=== PATIENT | male | born 1950 | race American Indian/Alaskan Native ===

== ENCOUNTER 2017-09-07 21:08 | Emergency (ER) | payer MEDICARE ==
[2017-09-07 22:14] LABS: Basophils # (Auto) 0.1 K/mm3 (0.0-0.1); Basophils % (Auto) 1.3 % (0.0-1.8); Eosinophils # (Auto) 0.1 K/mm3 (0.0-0.4); Eosinophils % (Auto) 1.6 % (0.0-4.3); Hemoglobin 14.3 gm/dl (11.8-15.2); Lymphocytes # (Auto) 2.5 K/mm3 (1.2-5.4); Lymphocytes % (Auto) 46.2 % (13.4-35.0); Mean Corpuscular HGB Conc 34 % (32-34); Mean Corpuscular Hemoglobin 31 pg (28-32); Mean Corpuscular Volume 91 fl (84-94); Monocytes # (Auto) 0.4 K/mm3 (0.0-0.8); Monocytes % (Auto) 7.8 % (0.0-7.3); Platelet Count 200 K/mm3 (140-440); Red Cell Distribution Width 14.1 % (13.2-15.2)
[2017-09-07 22:21] LABS: BUN/Creatinine Ratio 9; Blood Urea Nitrogen 7 mg/dL (9-20); Calcium 9.5 mg/dL (8.4-10.2); Hemolysis Index 7
[2017-09-08 00:34] LABS: Bilirubin,Urine NEG (Negative); Blood,Urine SM (Negative); Color,Urine Yellow (Yellow); Protein,Urine <15 mg/dL mg/dL (Negative)
[2017-09-08 00:43] LABS: Amphetamine Screen,Urine PRESUMPTIVE NEGATIVE; Benzodiazepines Screen,Urine PRESUMPTIVE NEGATIVE; Cannabinoid Screen,Urine PRESUMPTIVE NEGATIVE; Cocaine Screen,Urine PRESUMPTIVE NEGATIVE; Methadone Screen,Urine PRESUMPTIVE NEGATIVE; Opiate Screen,Urine PRESUMPTIVE NEGATIVE
--- NOTE | 2017-09-08 01:46 | Emergency Department Report ---
ED Psych HPI - General Chief Complaint: Psych Stated Complaint: SUICIDAL Time Seen by Provider: 09/07/17 23:39 Source: patient Mode of arrival: Ambulatory - History of Present Illness Initial Comments: Patient says that he sat worsening depression over the past 2 days has been having thoughts about when he kill himself. He says that he'll probably overdose, but does not have a concrete plan. Remote history of suicide attempt. Lives alone. No guns at home. Denies illicit drug use. Says that he has been compliant with his home medication. - Related Data Allergies Allergy/AdvReac Type Severity Reaction Status Date / Time No Known Allergies Allergy Unverified 09/07/17 21:33 ED Review of Systems ROS: Stated complaint: SUICIDAL Other details as noted in HPI Comment: All other systems reviewed and negative Psychiatric: depression, suicidal thoughts ED Past Medical Hx - Past Medical History Previous Medical History?: No - Surgical History Past Surgical History?: No - Social History Smoking Status: Current Every Day Smoker Substance Use Type: None ED Physical Exam - General Limitations: No Limitations General appearance: alert, in no apparent distress - Head Head exam: Present: atraumatic, normocephalic - Eye Eye exam: Present: normal appearance - ENT ENT exam: Present: mucous membranes moist - Neck Neck exam: Present: normal inspection - Respiratory Respiratory exam: Present: normal lung sounds bilaterally. Absent: respiratory distress - Cardiovascular Cardiovascular Exam: Present: regular rate, normal rhythm. Absent: systolic murmur, diastolic murmur, rubs, gallop - GI/Abdominal GI/Abdominal exam: Present: soft, normal bowel sounds. Absent: tenderness - Rectal Rectal exam: Present: deferred - Extremities Exam Extremities exam: Present: normal inspection - Back Exam Back exam: Present: normal inspection - Neurological Exam Neurological exam: Present: alert, oriented X3 - Psychiatric Psychiatric exam: Present: normal affect, depressed, suicidal ideation - Skin Skin exam: Present: warm, dry, intact, normal color. Absent: rash ED Course Vital Signs 09/07/17 09/08/17 21:33 01:17 Temperature 98.5 F 98.2 F Pulse Rate 99 H 89 Respiratory 18 18 Rate Blood Pressure 121/85 Blood Pressure 124/81 [Left] O2 Sat by Pulse 96 98 Oximetry ED Medical Decision Making - Lab Data Result diagrams: 09/07/17 21:52 09/07/17 21:52 - Medical Decision Making 67-year-old male with past medical history of depression that presents to the ER with suicidal ideation. Vital signs are stable. Patient appears to be depressed. Lab work and urinalysis are unremarkable. Patient is medically clear. He has been evaluated by psychiatry, who recommended inpatient management for the patient. He will remain in the ER until placement can be found. Patient has been placed on a 1013. - Differential Diagnosis depression, intoxication, electrolyte abnormalities, malingering, mood diso Critical care attestation.: If time is entered above; I have spent that time in minutes in the direct care of this critically ill patient, excluding procedure time. ED Disposition Clinical Impression: Mood disorder Disposition: Z-01 MED SCREENING EXAM-CONT Is pt being admited?: No Does the pt Need Aspirin: No Condition: Stable Referrals: PRIMARY CARE, [Primary Care Provider] - 3-5 Days
--- NOTE | 2017-09-08 12:26 | Consultation ---
History of Present Illness - Reason for Consult Consult date: 09/08/17 Reason for consult: Initial Psychiatric Evaluation Medications and Allergies Allergies Allergy/AdvReac Type Severity Reaction Status Date / Time No Known Allergies Allergy Verified 09/08/17 02:00 Home Medications Medication Instructions Recorded Confirmed Last Taken Type Hydrochlorothiazide [HCTZ] 25 mg PO QDAY 09/06/17 09/06/17 Unknown History Mental Status Exam - Vital signs Last Vital Signs Temp 98.2 F 09/08/17 01:17 Pulse 89 09/08/17 01:17 Resp 18 09/08/17 01:17 BP 124/81 09/08/17 01:17 Pulse Ox 98 09/08/17 01:17 Results Result Diagrams: 09/07/17 21:52 09/07/17 21:52 Abnormal lab results 09/07/17 09/07/17 09/07/17 Range/Units 21:52 21:52 21:52 Lymph % (Auto) (13.4-35.0) % [place] % (Auto) (0.0-7.3) % BUN 7 L (9-20) mg/dL Salicylates < 0.3 L (2.8-20.0) mg/dL Acetaminophen < 5.0 L (10.0-30.0) ug/mL 09/07/17 Range/Units 21:52 Lymph % (Auto) 46.2 H (13.4-35.0) % [place] % (Auto) 7.8 H (0.0-7.3) % BUN (9-20) mg/dL Salicylates (2.8-20.0) mg/dL Acetaminophen (10.0-30.0) ug/mL All other labs normal.
[2017-09-08 18:48] VITALS: BP 131/99
== END 2017-09-08 18:50 | disposition home or self-care (01) ==
LOC: EEVIPCON 21:08 → ED 21:08
DX: F39 Unspecified mood [affective] disorder (principal); F17.200 Nicotine dependence, unspecified, uncomplicated
CPT/HCPCS: 36415; 80048; 80307; 81001; 85025; 99285; G0480; 80320

== ENCOUNTER 2017-11-12 16:09 | Emergency (ER) | payer MEDICARE ==
[2017-11-12 16:55] LABS: Basophils # (Auto) 0.1 K/mm3 (0.0-0.1); Eosinophils # (Auto) 0.3 K/mm3 (0.0-0.4); Eosinophils % (Auto) 4.1 % (0.0-4.3); Hematocrit 45.8 % (35.5-45.6); Hemoglobin 15.6 gm/dl (11.8-15.2); Lymphocytes # (Auto) 2.6 K/mm3 (1.2-5.4); Lymphocytes % (Auto) 43.2 % (13.4-35.0); Mean Corpuscular HGB Conc 34 % (32-34); Mean Corpuscular Hemoglobin 32 pg (28-32); Mean Corpuscular Volume 93 fl (84-94); Monocytes # (Auto) 0.7 K/mm3 (0.0-0.8); Monocytes % (Auto) 10.9 % (0.0-7.3); Platelet Count 238 K/mm3 (140-440); Red Blood Count 4.92 M/mm3 (3.65-5.03); Red Cell Distribution Width 13.6 % (13.2-15.2)
[2017-11-12 17:03] LABS: Bilirubin,Urine NEG (Negative); Blood,Urine SM (Negative); Color,Urine Straw (Yellow); Protein,Urine <15 mg/dL mg/dL (Negative); Urobilinogen,Urine < 2.0 mg/dL (<2.0); WBC,Urine < 1.0 /HPF (0.0-6.0)
[2017-11-12 17:05] LABS: BUN/Creatinine Ratio 9; Blood Urea Nitrogen 9 mg/dL (9-20); Calcium 9.9 mg/dL (8.4-10.2); Hemolysis Index 29
[2017-11-12 17:08] LABS: Amphetamine Screen,Urine PRESUMPTIVE NEGATIVE; Benzodiazepines Screen,Urine PRESUMPTIVE NEGATIVE; Cannabinoid Screen,Urine PRESUMPTIVE NEGATIVE; Cocaine Screen,Urine PRESUMPTIVE NEGATIVE; Methadone Screen,Urine PRESUMPTIVE NEGATIVE; Opiate Screen,Urine PRESUMPTIVE NEGATIVE
[2017-11-12] MEDS ORDERED: LIBRIUM PO ONE (17:46)
[2017-11-12] MEDS ORDERED: NACL 0.9% 1000 ML 1,000 ML IV ONE (17:46)
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
[2017-11-12 22:35] VITALS: BP 121/70
== END 2017-11-13 01:00 | disposition other institution (70) ==
LOC: ED 16:09
DX: F10.929 Alcohol use, unspecified with intoxication, unspecified (principal); R00.0 Tachycardia, unspecified; E86.0 Dehydration; F41.9 Anxiety disorder, unspecified; I10 Essential (primary) hypertension; F17.200 Nicotine dependence, unspecified, uncomplicated
CPT/HCPCS: 36415; 80048; 80307; 81001; 85025; 96360; 99285; G0480; J7030; 80320

== ENCOUNTER 2017-11-13 01:31 | Emergency (ER) | payer MEDICARE | END 2017-11-13 01:32 | disposition left against medical advice (07) | LOC: ED 01:31 | DX: R45.851 Suicidal ideations (principal); Z53.21 Procedure and treatment not carried out due to patient leaving prior to being seen by health care provider ==